=== PATIENT | female | born 1995 | race Caucasian/White ===

== ENCOUNTER 2019-02-05 10:54 | Inpatient (IN) | payer OTHER ==
[2019-02-05] VITALS (14 sets, daily range): BP systolic 132–164; BP diastolic 76–96
[~2019-02-05] VITALS: Ht 180.3 cm; Wt 97.8 kg
[2019-02-05] MEDS ORDERED: LACTATED RINGER'S 1000 ML IV STA (11:44)
[2019-02-05] MEDS ORDERED: TUMS500C PO (11:56)
[2019-02-05] MEDS ORDERED: MAPA500T2 PO (11:56)
[2019-02-05] MEDS ORDERED: PREN1TAB11 PO (11:56)
[2019-02-05 12:35] LABS: HEMATOCRIT 33.8 % (36.0-47.0); MEAN CORPUSCULAR HEMOGLOBIN 25.6 pg (27.0-33.0); MEAN CORPUSCULAR HGB CONC 32.5 g/dl (32.0-36.5); MEAN CORPUSCULAR VOLUME 78.8 fl (80.0-96.0); PLATELET COUNT, AUTOMATED 276 10^3/uL (150-450); RED BLOOD COUNT 4.29 10^6/uL (4.00-5.40); WHITE BLOOD COUNT 12.5 10^3/uL (4.0-10.0)
[2019-02-05] MEDS ORDERED: miSOPROStol 25 MCG 1/4 TAB (S0191) As Ordered ONE (12:39)
[2019-02-05] MEDS ORDERED: miSOPROStol 25 MCG 1/4 TAB (S0191) PV ONE (12:45)
[2019-02-05] MEDS: LR 1,000 ML IV SCH ×2 (12:50→17:20)
--- NOTE | 2019-02-05 13:02 | HPEPDOC ---
Obstetrical History & Physical General Date of Admission Feb 05, 2019 at 10:54 History of Present Illness Sarah is a 24yo with SIUP at 39w0d presenting for scheduled IOL for GHTN. She feels well, not feeling ctx, no LOF, no vaginal bleeding, good movement. No f/c/n/v/CP/SOB/CARTER/vision changes. 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 Past Medical History Medical History benign PMhx Surgical History: [place] teeth Family History Significant Family History: No pertinent family hx Social History Marital Status: Family situation: Spouse/partner home Psychosocial History: No pertinent psych hx * Smoker: non-smoker Alcohol: Denies Drugs: denies Imunizations Tdap status: current Influenza Status: current Allergies Coded Allergies: Penicillins (Verified Allergy, Unknown, RASH, 02/05/19) Sulfa Antibiotics (Verified Allergy, Unknown, RASH, 02/05/19) Medications Scheduled Calcium Carbonate (Tums) 500 Mg Chw, 2 TAB PO QID for cough and congestion Multivitamins/ ( Vitamin 27-0.8 mg) 1 Tab Tab, 1 TAB PO DAILY Miscellaneous Medications Acetaminophen (Mapap) 500 Mg Tab, 1,000 MG PO Physical Examination Physical Examination GENERAL: Alert and oriented times three. ABDOMEN: Gravid and non-tender to touch. FETUS: fetus is vertex (VTX) by Moe. EXTREMITIES: trace bilat pedal edema Vital Signs/I&O Vital Signs Date Time Temp Pulse Resp B/P (MAP) Pulse Ox O2 Delivery O2 Flow Rate FiO2 02/05/19 12:34 91 18 146/85 (105) 02/05/19 11:16 98.1 Laboratory Data 24H LABS Laboratory Tests 2 02/05/19 11:26: Serology Scanned Report Hepatitis B Testing 02/05/19 12:10: Nucleated Red Blood Cells % (auto) 0.0 CBC/BMP Laboratory Tests 02/05/19 12:10 Red Blood Count 4.29, Mean Corpuscular Volume 78.8 L, Mean Corpuscular Hemogl obin 25.6 L, Mean Corpuscular Hemoglobin Concent 32.5, Red Cell Distribution Width 14.6 H Pertinent Laboratoy Data Blood Type: O- RBC Antibody Screen: Negative HIV: Negative Hepatitis B: Negative Hepatitis C: Unknown Rapid Plasma Reagin: Nonreactive Rubella: Immune Varicella: Immune Chlamydia/Gonorrhea: Negative Group B Streptococcus: Negative Glucose Tolerance Test: 146 (86/143/130/80) Anatomy Ultrasound Ultrasound Date: Sep 25, 2018 Placenta Location: Posterior Normal Anatomy: Yes Placenta Previa: No Other Ultrasounds GS 14 Jan 64%ile Steroid Therapy Steroid Therapy: No Vaginal Examination Dilation: None Effacement: 50% Station: -3 Cervical Consistency: Medium Cervical Position: Posterior Presentation: Cephalic presentation Assessment Heart Rate (FHR): 150 Variability: Moderate Accelerations: Positive Decelerations: None Tocometer Contractions: Yes Frequency: irregular Duration: less than 60 seconds Strength: palpated as mild Assessment/Plan Assessment Sarah is a 24yo with SIUP at 39w0d presenting for scheduled IOL for GHTN. Mild range bp's, no sx of Pre-E, benign exam. GBS negative. SCE cl/50/-3, posterior so 25mcg cytotec placed vaginally and will recheck in 4hr. Cat I FHRT with irreg ctx. PNC complicated by GHTN, Rh negative received rhogam Dec, excessive weight gain (66 lb), elevated 1hr glucola with normal 3hr GTT Plan Admit and orient. Final Inspector Shuttle and consent. Diet: regular for lunch then clear liquids Group B Streptococcus (GBS) negative Labs and intravenous (IV) per unit protocol with pre-E profile Counseled on cytotec, rose bulb, Pitocin and induction of labor (IOL). Lactated Ringers (LR): Bolus 500 mL, then at 125 mL/hr. Anticipate normal spontaneous delivery () Candidate for epidural if desired MD Taylor Tam Katrina D MD Feb 05, 2019 12:59
[2019-02-05 13:41] LABS: ALT/SGPT 19 U/L (12-78); BILIRUBIN,TOTAL 0.3 MG/DL (0.2-1.0); CREATININE FOR GFR 0.51 MG/DL (0.55-1.30); GLOMERULAR FILTRATION RATE > 60.0 (>60); LDH LACTATE DEHYDROGENASE 189 U/L (84-246); URIC ACID 3.5 MG/DL (2.6-6.0)
--- NOTE | 2019-02-05 17:36 | IPNPDOC ---
Text Note Date of Service The patient was seen on 02/05/19. NOTE Intrapartum Note Sarah is doing well, starting to feel some cramping. Had lunch. Has ambulated. No CARTER/vision changes. Vitals show normotensive to mild range bp's, afebrile General: resting in bed comfortably Abdomen: soft, gravid, NTTP SCE: closed/50/-3, posterior Cat I FHRT with bl 130's, +accels, -decels, mod capo [place]: ctx q5min Will begin oral cytotec 50mcg q4hr until feeling strong regular ctx When patient is at least 1cm, will place a rose bulb Continue to closely monitor Ok to have regular dinner Safe to proceed Dr. Ju Vazquez MD VS,Barb, I+O VS, Barb, I+O Laboratory Tests 02/05/19 12:10 Red Blood Count 4.29, Mean Corpuscular Volume 78.8 L, Mean Corpuscular Hemoglobin 25.6 L, Mean Corpuscular Hemoglobin Concent 32.5, Red Cell Distribution Width 14.6 H, Aspartate Amino Transf (AST/SGOT) 21, Alanine Aminotransferase (ALT/SGPT) 19, Lactate Dehydrogenase 189, Total Bilirubin 0.3, Uric Acid 3.5 Vital Signs Date Time Temp Pulse Resp B/P (MAP) Pulse Ox O2 Delivery O2 Flow Rate FiO2 02/05/19 16:31 98.3 96 16 133/77 (95) Ju Vazquez MD Feb 05, 2019 17:36
[2019-02-05] MEDS: miSOPROStol 50 MCG 1/2 TAB (S0191) PO SCH ×2 (17:57→22:32)
[2019-02-06] VITALS (40 sets, daily range): BP systolic 113–186; BP diastolic 58–106
[2019-02-06] MEDS ORDERED: OXYTOCIN DRIP 30 UNITS in APPROPRIATE DILUENT 1 EA IV SCH (02:30)
--- NOTE | 2019-02-06 02:36 | IPNPDOC ---
Text Note Date of Service The patient was seen on 02/06/19. NOTE Intrapartum Note Pt doing well, not really feeling ctx anymore. No CARTER/vision changes Vitals: normotensive to mild range bp's, afebrile General: resting comfortably in bed NAD Abdomen: soft, gravid, NTTP SCE: 50/-2, more anterior this check. rose bulb placed without issue, 40cc NS Cat I FHRT with +accels, -decels, mod capo [place]: ctx q3min Will plan to start pitocin and titrate per protocol up to 6mu until rose bulb comes out, then continue to titrate per protocol Continue to closely monitor diet switch from regular to clear liquids Safe to proceed Dr. Ju Vazquez MD VS,Barb, I+O VS, Barb, I+O Laboratory Tests 02/05/19 12:10 Red Blood Count 4.29, Mean Corpuscular Volume 78.8 L, Mean Corpuscular Hemoglob in 25.6 L, Mean Corpuscular Hemoglobin Concent 32.5, Red Cell Distribution Width 14.6 H, Aspartate Amino Transf (AST/SGOT) 21, Alanine Aminotransferase (ALT/SGPT) 19, Lactate Dehydrogenase 189, Total Bilirubin 0.3, Uric Acid 3.5 Vital Signs Date Time Temp Pulse Resp B/P (MAP) Pulse Ox O2 Delivery O2 Flow Rate FiO2 02/05/19 18:54 93 16 141/92 (108) 02/05/19 16:31 98.3 I&O- Last 24 Hours up to 6 AM 02/06/19 05:59 Intake Total 1140 ml Balance 1140 ml Ju Vazquez MD Feb 06, 2019 02:36
[2019-02-06] MEDS ORDERED: OXYTOCIN 30 UNITS IN 0.9% NaCl 500ML IV BAG (J2590) As Ordered ONE (02:41)
[2019-02-06] MEDS: LR 1,000 ML IV SCH ×4 (02:50→18:54)
--- NOTE | 2019-02-06 10:54 | IPNPDOC ---
Text Note Date of Service The patient was seen on 02/06/19. NOTE SBAR from Dr Vazquez at 0730 FB now out last 1-2 hrs Pit at 10 mu/min Pain not too significant, does not desire her epidural yet Cx tight 3-/-2 at 1015, mid-not soft Pitocin per SOP, epidural on demand, recheck in ~ 4-6 hrs, sooner prn Sessions VS,Barb, I+O VSBarb I+O Laboratory Tests 02/05/19 12:10 Red Blood Count 4.29, Mean Corpuscular Volume 78.8 L, Mean Corpuscular Hemoglobin 25.6 L, Mean Corpuscular Hemoglobin Concent 32.5, Red Cell Distribution Width 14.6 H, Aspartate Amino Transf (AST/SGOT) 21, Alanine Aminotransferase (ALT/SGPT) 19, Lactate Dehydrogenase 189, Total Bilirubin 0.3, Uric Acid 3.5 Vital Signs Date Time Temp Pulse Resp B/P (MAP) Pulse Ox O2 Delivery O2 Flow Rate FiO2 02/06/19 08:48 90 16 139/82 (101) 02/06/19 07:21 97.7 I&O- Last 24 Hours up to 6 AM 02/06/19 06:00 Intake Total 1140 ml Balance 1140 ml SESSIONS,AB Nuñez MD Feb 06, 2019 10:54
--- NOTE | 2019-02-06 15:13 | IPNPDOC ---
Text Note Date of Service The patient was seen on 02/06/19. NOTE Pit at 18 mu/min Pain not too significant, does not desire her epidural yet Cx tight 4-5/75/-2 at 1515 Pitocin per SOP, epidural on demand, recheck in ~ 3 hrs, sooner prn Sessions VS,Barb, I+O VSBarb, I+O Vital Signs Date Time Temp Pulse Resp B/P (MAP) Pulse Ox O2 Delivery O2 Flow Rate FiO2 02/06/19 10:44 103 16 118/58 (78) 02/06/19 07:21 97.7 I&O- Last 24 Hours up to 6 AM 02/06/19 05:59 Intake Total 1140 ml Balance 1140 ml SESSIONS,AB Nuñez MD Feb 06, 2019 15:13
--- NOTE | 2019-02-06 18:13 | IPNPDOC ---
Text Note Date of Service The patient was seen on 02/06/19. NOTE Pit at 20 mu/min Pain increasing Cx tight /-1 (no signif change), AROM with clr fluid, IUPC placed Pitocin per SOP, epidural on demand, recheck when persistently adequate MVU's for 2-4 hrs, sooner prn Sessions VS,Barb, I+O VS, Barb, I+O Vital Signs Date Time Temp Pulse Resp B/P (MAP) Pulse Ox O2 Delivery O2 Flow Rate FiO2 02/06/19 17:32 106 16 130/61 (84) 02/06/19 16:27 98.5 I&O- Last 24 Hours up to 6 AM 02/06/19 05:59 Intake Total 1140 ml Balance 1140 ml SESSIONS,AB Nuñez MD Feb 06, 2019 18:13
[2019-02-06] MEDS ORDERED: LACTATED RINGER'S 1000 ML IV ONE (19:00)
[2019-02-06 19:33] LABS: HEMATOCRIT 33.5 % (36.0-47.0); HEMOGLOBIN 10.7 g/dl (12.0-15.5); MEAN CORPUSCULAR HEMOGLOBIN 25.6 pg (27.0-33.0); MEAN CORPUSCULAR HGB CONC 31.9 g/dl (32.0-36.5); MEAN CORPUSCULAR VOLUME 80.1 fl (80.0-96.0); PLATELET COUNT, AUTOMATED 283 10^3/uL (150-450); RED BLOOD COUNT 4.18 10^6/uL (4.00-5.40); WHITE BLOOD COUNT 16.4 10^3/uL (4.0-10.0)
[2019-02-06] MEDS ORDERED: FENTANYL 2MCG/ML ROPIVACAINE 0.2% IN 0.9% NACL 100ML IVBAG As Ordered ONE (19:43)
[2019-02-06] MEDS ORDERED: BICITRA 30ML SOLN UDC PO ONE (22:30)
[2019-02-06] MEDS ORDERED: CLINDAMYCIN 900 MG in APPROPRIATE DILUENT 1 EA IV ONE (22:30)
[2019-02-06] MEDS ORDERED: GENTAMICIN 80 MG in APPROPRIATE DILUENT 1 EA IV ONE (22:30)
--- NOTE | 2019-02-06 22:33 | IPNPDOC ---
Text Note Date of Service The patient was seen on 02/06/19. NOTE Pit at 22 mu/min Pain now well controlled with epidural Cx 75/0 (no signif change) MVU's have been adeq last 4 hrs Pitocin off, OR team mobilizing Will move to the OR after an epidural is done on another pt, not emergent, but urgent, preop dx is arrest of dilation despite adeq MVU's Sessions VS,Barb, I+O VSBarb I+O Laboratory Tests 02/06/19 19:26 Red Blood Count 4.18, Mean Corpuscular Volume 80.1, Mean Corpuscular Hemoglobin 25.6 L, Mean Corpuscular Hemoglobin Concent 31.9 L, Red Cell Distribution Width 14.9 H Vital Signs Date Time Temp Pulse Resp B/P (MAP) Pulse Ox O2 Delivery O2 Flow Rate FiO2 02/06/19 20:11 98.8 02/06/19 19:23 102 154/89 (110) 02/06/19 18:34 16 I&O- Last 24 Hours up to 6 AM 02/06/19 06:00 Intake Total 1140 ml Balance 1140 ml MAISHA,AB Nuñez MD Feb 06, 2019 22:33
[2019-02-06] MEDS ORDERED: ONDANSETRON 4MG/2ML VIAL (J2405) As Ordered ONE (22:55)
[2019-02-06] MEDS ORDERED: LIDOCAINE 2% W/EPIN INJ 20ML **PRES FREE As Ordered ONE (22:55)
[2019-02-06] MEDS ORDERED: OXYTOCIN INJ 10 UNITS/ML VIAL (J2590) As Ordered ONE (22:55)
[2019-02-06] MEDS ORDERED: dexameTHASONE 4 MG/ML 1ML VIAL (J1100) As Ordered ONE (22:55)
[2019-02-06] MEDS ORDERED: REFRIGERATOR IV KEYS XX PRN (23:00)
[2019-02-06] MEDS ORDERED: diphenhydrAMINE INJ 50MG/ML VIAL (J1200) IV PRN ×2 (23:00→23:39)
[2019-02-06] MEDS ORDERED: ePHEDrine SULFATE 25 MG/5 ML(5MG/ML) SYRINGE IV PRN (23:00)
[2019-02-06] MEDS ORDERED: ONDANSETRON 4MG/2ML VIAL (J2405) IV PRN ×2 (23:00→23:39)
[2019-02-06] MEDS ORDERED: FENTANYL/ROPIVACAINE/NACL BAG 100 ML EPIDURAL SCH (23:00)
[2019-02-06] MEDS ORDERED: LACTATED RINGER'S 1000 ML IV PRN (23:00)
[2019-02-06] MEDS ORDERED: EPIDURAL/PCA KEYS XX PRN (23:00)
[2019-02-06] MEDS ORDERED: EPIDURAL COMMENT XX SCH (23:00)
[2019-02-06] MEDS ORDERED: NALOXONE INJ 0.4 MG/1 ML VIAL (J2310) IV PRN ×3 (23:00→23:39)
[2019-02-06] MEDS ORDERED: MORPHINE PRES-FREE INJ 10 MG/10 ML VIAL (J2274) As Ordered ONE (23:35)
[2019-02-06] MEDS ORDERED: NALBUPHINE HCL 10 MG/ML AMP (J2300) IV PRN (23:39)
[2019-02-06] MEDS ORDERED: METOCLOPRAMIDE INJ 10MG/2ML VIAL (J2765) IV PRN (23:39)
[2019-02-07] VITALS (8 sets, daily range): BP systolic 115–139; BP diastolic 56–67
[2019-02-07] MEDS ORDERED: KETOROLAC 60 MG/2 ML VIAL (J1885) As Ordered ONE (00:06)
[2019-02-07] MEDS ORDERED: OXYTOCIN 30 UNITS IN 0.9% NaCl 500ML IV BAG (J2590) As Ordered ONE (00:20)
[2019-02-07] MEDS ORDERED: OXYTOCIN DRIP 30 UNITS in APPROPRIATE DILUENT 1 EA IV SCH (00:28)
[2019-02-07] MEDS ORDERED: RHOGAM 300 MCG (1500 IU) INJ (J2790) IM SCH (00:30)
[2019-02-07] MEDS ORDERED: METOCLOPRAMIDE INJ 10MG/2ML VIAL (J2765) IV PRN (00:30)
[2019-02-07] MEDS ORDERED: MEASLES,MUMPS,RUBELLA VACCINE INJ (MMR-II) (90707) SC SCH (00:30)
[2019-02-07] MEDS: KETOROLAC 30 MG/ML VIAL (J1885) IV SCH ×3 (06:15→18:43)
--- NOTE | 2019-02-07 07:46 | IPNPDOC ---
Text Note Date of Service The patient was seen on 02/07/19. NOTE PLTCS POD1 States feeling well, pain controlled with prescribed meds. Baby bonding and feeding well. No heavy VB. Lochia slowing. Ambulatory. Tolerating PO without issues. Smith in place. No CP/LP/SOB. VSSAF NAD A&O Incision bandage clean/dry LE no C/C/E Ut at U-1, firm, appropr tenderness UO adequate CBC this AM pending a/p: Doing well. Cont routine postop/ care. D/C in 48 hours, this MON. Sessions Barb BRYANT, I+O Barb BOND I+O Laboratory Tests 02/06/19 19:26 Red Blood Count 4.18, Mean Corpuscular Volume 80.1, Mean Corpuscular Hemoglobin 25.6 L, Mean Corpuscular Hemoglobin Concent 31.9 L, Red Cell Distribution Width 14.9 H Vital Signs Date Time Temp Pulse Resp B/P (MAP) Pulse Ox O2 Delivery O2 Flow Rate FiO2 02/07/19 05:15 98.3 100 19 130/64 (86) 100 I&O- Last 24 Hours up to 6 AM 02/07/19 06:00 Intake Total 3440 ml Output Total 4100 ml Balance -660 ml SESSIONS,AB Nuñez MD Feb 07, 2019 07:46
[2019-02-07] MEDS: PRENATAL VITAMINS CHEWABLE TABLET PO SCH (08:14)
[2019-02-07] MEDS: DOCUSATE SODIUM 100 MG CAP PO SCH ×2 (08:14→20:00)
[2019-02-07] MEDS: PERCOCET 5MG/325MG TAB PO PRN ×3 (08:34→19:48)
--- NOTE | 2019-02-07 15:46 | RO ---
DATE OF PROCEDURE: 02/06/2019 Time: 2350 hours PREOPERATIVE DIAGNOSIS: Failed induction of labor due to arrest of dilation at 5 cm despite adequate MVUs for 4 hours. POSTOPERATIVE DIAGNOSIS: Failed induction of labor due to arrest of dilation at 5 cm despite adequate MVUs for 4 hours. PROCEDURE: Primary low transverse section. SURGEON: Dr. Partha Mckenzie COOKEE: None. technology specialist only. ANESTHESIA: Epidural. ESTIMATED BLOOD LOSS: 500 mL. DRAINS: Smith catheter with 275 mL of clear urine in the catheter. FLUIDS REPLACED: 1600 mL of lactated Ringer's PREOP ANTIBIOTICS: Gentamicin 80 mg and clindamycin 900 mg due to a penicillin and sulfa allergy. SPECIMENS: None. INDICATION: The patient was started yesterday at 39 plus 0 for induction due to stable gestational hypertension with no evidence of preeclampsia. She underwent a misoprostol and Smith bulb and Pitocin induction that was uncomplicated as far as heart tracing went. Her induction stalled at 4-5 cm and an amniotomy and an intrauterine pressure catheter (IUPC) was placed. Pitocin went up as high as 22 milliunits per minute, and at that point, the baby was noted to start having intermittent late decelerations. However, 4 hours after the IUPC was placed, contractions were noted to have been adequate the whole 4 hours and cervix did not change at all since amniotomy and IUPC placement. Therefore, arrest of dilation was diagnosed and a primary delivery was recommended. FINDINGS: Include a low transverse uterine incision, clear amniotic fluid, male weighing 8 pounds 5 ounces, 3780 grams, scores of 9 and 9. DESCRIPTION OF PROCEDURE: The patient was taken to the operating room after an epidural bolus, and after it was found to be adequate, the patient was prepped and draped in the normal sterile fashion. A Pfannenstiel skin incision was carried down to the layer of the fascia, which was nicked in the midline, extended bilaterally the extent of the skin incision. Sheri clamps were used to elevate the fascial edges and the underlying rectus muscles were dissected off sharply. The rectus muscles were in midline. The peritoneum was breeched with my digit and quick exploration revealed no scar tissue. Gentle stretching maneuver created an adequate peritoneal window and a bladder blade was placed. Bladder flap was easily created. A low transverse uterine incision was performed with clear fluid noted upon amniotomy. This was stretched to adequacy, and the 's head was elevated and with fundal pressure from my technical sales specialist assistant womens volleyball coach, we were able to deliver the baby atraumatically. Infant had good tone and spontaneous cry. Cord was clamped times two and cut, and the infant was handed off to waiting resuscitation team after being shown to the parents. Cord blood was obtained. With traction, the placenta was delivered through the uterine incision with Pitocin running wide open and fundal massage. The uterus was delivered through the incision and wrapped in a warm sponge, and cleared of all clots and debris in the intrauterine cavity with two dry sponges. A running locked suture of #0 Vicryl from left to right was performed closing the hysterotomy. An imbrication stitch of #0 Monocryl was used as well to good effect. Two [id number] stitches were needed at the uterine incision to obtain hemostasis. The uterus was returned to its anatomical position after irrigation behind the uterus was performed. A small amount of clot and amniotic fluid was cleared from each colic gutter, and on final inspection, the uterine incision confirmed hemostasis. The peritoneum was closed superior to inferior with #2-0 Vicryl and the rectus bellies were inspected, found to be hemostatic. The fascia was closed from her left to right with a running #0 Vicryl. The subcutaneous tissue was copiously irrigated and made to be hemostatic and reapproximated with #2-0 Vicryl. Skin was closed with #4-0 Monocryl subcuticular running stitch from left to right and an Optifoam dressing was placed over the incision. A bimanual exam was performed, clearing the cervix and vagina of all clots and debris, and the uterus was noted be firm at U +1. All sponge, needle, and instrument counts were correct times three.
[2019-02-08] MEDS: PERCOCET 5MG/325MG TAB PO PRN ×3 (01:08→11:21)
[2019-02-08 03:00] VITALS: BP 128/71
[2019-02-08] MEDS: IBUPROFEN 800 MG TAB PO SCH ×2 (03:03→11:20)
[2019-02-08 06:00] VITALS: BP 131/71
[2019-02-08 06:07] LABS: HEMATOCRIT 29.5 % (36.0-47.0); HEMOGLOBIN 9.5 g/dl (12.0-15.5); MEAN CORPUSCULAR HEMOGLOBIN 25.8 pg (27.0-33.0); MEAN CORPUSCULAR HGB CONC 32.2 g/dl (32.0-36.5); MEAN CORPUSCULAR VOLUME 80.2 fl (80.0-96.0); PLATELET COUNT, AUTOMATED 257 10^3/uL (150-450); RED BLOOD COUNT 3.68 10^6/uL (4.00-5.40); WHITE BLOOD COUNT 15.3 10^3/uL (4.0-10.0)
[2019-02-08] MEDS: PRENATAL VITAMINS CHEWABLE TABLET PO SCH (08:13)
[2019-02-08] MEDS: DOCUSATE SODIUM 100 MG CAP PO SCH (08:13)
[2019-02-08] MEDS ORDERED: OXYC1TAB23 PO ×2 (14:40)
[2019-02-08] MEDS ORDERED: COLA100C5 PO (14:40)
[2019-02-08] MEDS ORDERED: IBUP-1114 PO (14:40)
--- NOTE | 2019-02-09 15:10 | DSES ---
DATE OF ADMISSION: 02/05/2019 DATE OF DISCHARGE: 02/08/2019 This lady is a 24-year-old, 1, now para 1,admitted for induction of labor, chronic hypertension, at 39 weeks of gestation, had arrest of dilatation and descent, had a primary section, male 8 pounds 5 ounces (3780 grams) score of 9 and 9 at one and five minutes respectively. On her second day, we discussed phlebitis, cystitis, mastitis, endometritis and cellulitis, diet, exercise, pain management, perineal, breast and wound care. Medications were dispensed. She has a 2-week incision check and a 6-week check. Her hemoglobin 11.5, hematocrit 34.0 and platelets were 259. Her vital signs on discharge her blood pressure is 110/59, respirations 18, pulse 81 and temperature is 97.8. The rest examination unremarkable. She is normocephalic, atraumatic. Neck full range of motion. Pupils equal and reactive to light. Distal pulses symmetric. No evidence of deep venous thrombosis (DVT), pulmonary embolism (PE) or superficial phlebitis. Chest is clear bilaterally to bases. No wheezes or rhonchi. No costovertebral angle (CVA) tenderness. Abdomen soft. Uterus 2 below. Lochia is moderate. Incision is clean and dry, and four quadrant bowel sounds are noted. She has no rashes, lesions or pruritus. No arthralgia or myalgia. No complaint of joint pain. She has no constipation, diarrhea. No nausea, vomiting. No urgency or frequency. The rest examination unremarkable. All questions were answered. Patient will have a followup for incisional check. She was discharged with medications and plan of care.
== END 2019-02-08 16:00 | disposition home or self-care (01) | DRG 773 ==
LOC: M LDI 10:54 → M OBS 02-07 02:11
PROVIDERS: ADMIT Obstetrics & Gynecology; ATTEND Obstetrics & Gynecology
PROC: 3E0P7GC Introduction of Other Therapeutic Substance into Female Reproductive, Via Natural or Artificial Opening (ICD-10-PCS; 2019-02-05)
PROC: 10D00Z1 Extraction of Products of Conception, Low, Open Approach (ICD-10-PCS; principal; 2019-02-06)
PROC: 10907ZC Drainage of Amniotic Fluid, Therapeutic from Products of Conception, Via Natural or Artificial Opening (ICD-10-PCS; 2019-02-06)
DX: O13.4 Gestational [pregnancy-induced] hypertension without significant proteinuria, complicating childbirth (principal); Z3A.39 39 weeks gestation of pregnancy; O62.0 Primary inadequate contractions; Z37.0 Single live birth